=== PATIENT | female | born 1970 ===

== ENCOUNTER 2018-08-18 05:46 | Day surgery (SDC) | payer BC ==
[~2018-08-18] VITALS: Ht 160 cm; Wt 56.7 kg
[2018-08-18] VITALS (12 sets, daily range): BP systolic 90–110; BP diastolic 57–67
[2018-08-18] MEDS ORDERED: NKM (06:43)
[2018-08-18] MEDS ORDERED: ceFAZolin sod 1 GM in NS 55 ML IVPB ONE (07:00)
[2018-08-18] MEDS ORDERED: fentaNYL 100 mcg/2 mL IV ONE (07:06)
[2018-08-18] MEDS ORDERED: Midazolam 2mg/2ml Inj ONE (07:06)
[2018-08-18] MEDS ORDERED: cefOXitin 1gm Inj ONE (07:16)
[2018-08-18] MEDS ORDERED: Zemuron 50mg/5ml Inj IV ONE (07:16)
[2018-08-18] MEDS ORDERED: Bupivacaine w/Epi 0.25% 30ml Vial INJ ONE (07:20)
[2018-08-18] MEDS ORDERED: NeoSporin Gu Irrig 1ml Amp IRRIG ONE (07:21)
[2018-08-18] MEDS ORDERED: Bacitracin 50000 Units Vial ONE (07:21)
[2018-08-18] MEDS ORDERED: ProvayBlue 5mg/ml 10ml amp INJ ONE (07:30)
[2018-08-18] MEDS ORDERED: LR 1000ml 1,000 ML IVLG SCH (07:49)
--- NOTE | 2018-08-18 07:49 | Anethesia Preoperative Eval ---
Anesthesia Pre-op PMH/ROS General Date of Evaluation: Aug 18, 2018 Time of Evaluation: 07:35 Anesthesiologist: Dutch ASA Score: ASA 2 Mallampati Score Class I : Soft palate, uvula, fauces, pillars visible Class II: Soft palate, uvula, fauces visible Class III: Soft palate, base of uvula visible Class IV: Only hard plate visible Mallampati Classification: Class II Surgeon: Robbi Diagnosis: Stress incontinence Surgical Procedure: Vaginal sling placement Anesthesia History: none Family History: no anesthesia problems Allergies: Coded Allergies: PENICILLINS (Verified Allergy, Severe, Rash, 08/18/18) SULFA (SULFONAMIDE ANTIBIOTICS) (Verified Allergy, Severe, rash, 08/18/18) Medications: see eMAR Patient NPO?: Yes NPO Date: Aug 18, 2018 Past Medical History Cardiovascular: Denies: HTN, CAD, LA, valve dz, arrhythmia, other Pulmonary: Denies: asthma, COPD, JOSE ALEJANDRO, other Gastrointestinal/Genitourinary: Reports: GERD - mild, other - incontinence; Denies: CRI, ESRD Neurologic/Psychiatric: Denies: dementia, CVA, depression/anxiety, TIA, other Endocrine: Denies: DM, hypothyroidism, steroids, other HEENT: Denies: cataract (L), cataract (R), glaucoma, [place] (L), [place] (R), other Hematology/Immune: Denies: anemia, DVT, bleeding disorder, other Musculoskeletal/Integumentary: Denies: OA, RA, DJD, DDD, edema, other PMH Narrative: as above PSxH Narrative: Elbow Sx Anesthesia Pre-op Phys. Exam Physician Exam Last Vital Signs Date Time Temp Pulse Resp B/P (MAP) Pulse Ox O2 Delivery O2 Flow Rate FiO2 08/18/18 06:40 Room Air 08/18/18 06:23 98.0 75 18 103/57 99 Constitutional: NAD Neurologic: CN 2-12 intact Cardiovascular: RRR, no M/R/G Respiratory: CTA Gastrointestinal: S/NT/ND Airway Exam Mallampati Score: Class II MO: full Neck: flexble ROM: full Teeth: intact Dentures: no upper, no lower Anesthesia Pre-op A/P Labs see chart Urine Test Test 08/18/18 06:00 Urine HCG, Qualitative Negative (NEGATIVE) Studies Pre-op Studies: EKG - NSR Risk Assessment & Plan Assessment: ASA 2 Plan: GA with LMA Status Change Before Surgery: No Pre-Antibiotics Drug: Cefoxitin 1gr. Given Within 1 Hr of Incision: Yes Time Given: 08:15 Axel Judd MD Aug 18, 2018 07:49
[2018-08-18] MEDS ORDERED: LR 1000ml ONE (07:50)
[2018-08-18] MEDS ORDERED: Propofol 200mg/20ml IV ONE (07:50)
[2018-08-18] MEDS ORDERED: DiphenhydrAMINE 50mg/ml Inj IVP PRN (08:00)
[2018-08-18] MEDS ORDERED: fentaNYL 100 mcg/2 mL IV PRN (08:00)
[2018-08-18] MEDS ORDERED: Ketorolac 30mg Inj IV PRN (08:00)
[2018-08-18] MEDS ORDERED: Meperidine 50mg/ml Inj(FOR RIGORS ONLY) IV PRN (08:00)
[2018-08-18] MEDS ORDERED: Metoclopramide 10mg/2ml Inj IVP PRN (08:00)
[2018-08-18] MEDS ORDERED: Midazolam 2mg/2ml Inj IVP PRN (08:00)
--- NOTE | 2018-08-18 08:07 | Pre-Procedure Note/Attestation ---
Pre-Procedure Note/Attestation Complete Prior to Procedure Planned Procedure: not applicable Procedure Narrative: Vaginal Sling Cystocele repair Indications for Procedure Pre-Operative Diagnosis: stress incontinence Attestation I attest that I discussed the nature of the procedure; its benefits; risks and complications; and alternatives (and the risks and benefits of such alternatives ), prior to the procedure, with the patient (or the patient's legal floor representative). I attest that, if there was a reasonable possibility of needing a blood transfusion, the patient (or the patient's legal floor representative) was given the [facility] standardized written summary, pursuant to the Pawel Spangle Blood Safety Act ([place] Health and Safety Code # 1645, as amended). I attest that I re-evaluated the patient just prior to the surgery and that there has been no change in the patient's H&P, except as documented below: Jose Culp MD Aug 18, 2018 08:07
--- NOTE | 2018-08-18 09:06 | Brief Operative Note ---
Immediate Post Operative Note Operative Note Pre-op Diagnosis: stress incontinence Procedure: vaginal sling cystocele repair cystoscopy Post-op Diagnosis: same Surgeon: ousmane mendez Anesthesia: general Specimen: none Complications: none Condition: stable Fluids: 500 Estimated Blood Loss: minimal Implant(s) used?: Jose Nick MD Aug 18, 2018 09:05
[2018-08-18] MEDS ORDERED: Norco 5mg/325mg tab ORAL PRN (09:15)
[2018-08-18] MEDS ORDERED: D5 1/2NS 1,000 ML IV SCH (09:15)
[2018-08-18] MEDS ORDERED: Tylenol #3 tab (300mg/30mg) ORAL PRN (09:15)
[2018-08-18] MEDS ORDERED: HYDROmorphone 1mg/ml Carpuject SUBQ PRN (09:15)
--- NOTE | 2018-08-18 09:22 | Immediate Post-Op Evaluation ---
Immediate Post-Op Evalulation Immediate Post-Op Evalulation Procedure: Vaginal sling placement, cystocele repair Date of Evaluation: Aug 18, 2018 Time of Evaluation: 09:21 IV Fluids: 1000 Blood Products: none Estimated Blood Loss: 50 Urinary Output: n/a Blood Pressure Systolic: 105 Blood Pressure Diastolic: 67 Pulse Rate: 71 Respiratory Rate: 20 O2 Sat by Pulse Oximetry: 99 Temperature (Fahrenheit): 97.6 Pain Score (1-10): 1 Nausea: No Vomiting: No Complications none Patient Status: patent, none Hydration Status: adequate Axel Judd MD Aug 18, 2018 09:22
--- NOTE | 2018-08-18 16:45 | Operative Note - Dictated ---
DATE OF OPERATION: 08/18/2018 PREOPERATIVE DIAGNOSES: 1. Severe stress incontinence. 2. Vaginal prolapse. POSTOPERATIVE DIAGNOSES: 1. Severe stress incontinence. 2. Vaginal prolapse. OPERATIONS: Transvaginal cystocele repair, vaginal wall sling, and cystoscopy. OPERATED BY: Jose Culp M.D. ANESTHESIA: General. FINDINGS: Open urethra and mild bladder prolapse. INDICATIONS FOR SURGERY: The patient had a long-standing severe stress incontinence. She underwent full evaluation in my office including ultrasounds, urodynamics, and cystoscopy confirming the presence of incompetent urethra. Treatment options were explained to her in great length including medications, creams, and surgery and she decided to have surgical procedure. She understands all potential complications as well. She understands that there will be implantation of synthetic sling. She signed a consent. PROCEDURE IN DETAIL: She was brought to the operating room, placed in the lithotomy position, and prepped and draped in standard fashion. Under general anesthesia, 2.5 cm incision was done at the mid urethra and urethra was dissected as well as the bladder was dissected from surrounding adhesions. Using 2-0 Vicryl sutures with interrupted several sutures, pubocervical muscles were reapproximated supporting the mid bladder. After that, using [employer] device, self-retaining sling was placed in the mid urethra. Cystoscopy showed no evidence of bladder perforation. Urethra was carefully set up on the mid urethra without any tension. The wound was copiously irrigated. FloSeal was used to prevent any bleeding. The patient tolerated the procedure well. Wound was closed with a running 4-0 Vicryl suture. Packing for the vagina. Sponge count and instrument count was correct. Allen catheter was left indwelling. Allen and packing will be removed in the recovery and the patient will be discharged home today. No evidence of complications. Jose Culp M.D. DR: JOAQUÍN JOB#: [id number] CC:
[2018-08-19 08:52] VITALS: BP 108/74
--- NOTE | 2018-08-19 08:52 | 48 Hour Post Anesthesia Eval ---
Post Anesthesia Evaluation Procedure: Vaginal sling placement, cystocele repair Date of Evaluation: Aug 18, 2018 Time of Evaluation: 10:40 Blood Pressure Systolic: 108 0: 74 Pulse Rate: 68 Respiratory Rate: 20 Temperature (Fahrenheit): 97.6 O2 Sat by Pulse Oximetry: 98 Airway: patent Nausea: No Vomiting: No Pain Intensity: 2 Hydration Status: adequate Cardiopulmonary Status: stable Mental Status/LOC: patient returned to baseline Follow-up Care/Observations: n/a Post-Anesthesia Complications: none Follow-up care needed: ready to discharge Axel Judd MD Aug 19, 2018 08:52
== END 2018-08-18 11:35 | disposition home or self-care (01) ==
LOC: SUR 05:46
DX: N39.3 Stress incontinence (female) (male) (principal); N81.10 Cystocele, unspecified; K21.9 Gastro-esophageal reflux disease without esophagitis; Z88.0 Allergy status to penicillin; Z88.2 Allergy status to sulfonamides
CPT/HCPCS: 57240; 57288; 81025; C1771; J0694; J2250; J2405; J2704; J3010; 94003; 94150